=== PATIENT | female | born 1990 | race Caucasian/White ===

== ENCOUNTER 2017-06-21 23:39 | Emergency (ER) | payer MEDICAID, OTHER ==
[2017-06-22 00:07] VITALS: TEMP 97.7
[2017-06-22] MEDS ORDERED: carBAMazepine 200 MG TAB PO STA (00:32)
--- NOTE | 2017-06-22 01:39 | ED ---
Headache HPI - General Chief Complaint: Headache Stated Complaint: Headache x 2 days Time Seen by Provider: 06/22/17 00:12 Mode of arrival: ambulatory Limitations: no limitations - History of Present Illness Initial Comments: This patient is a 27-year-old woman presenting to be evaluate for left-sided headache. She states that this is been going on for about 2 days. The symptoms are intermittent. She gets very brief, very intense sharp jab of pain that resolves nearly immediately. She states this been going on multiple times a day. She tried taking ibuprofen which did not really improve things. She denies any associated fever or chills, neck pain, any neurologic symptoms. MD Complaint: headache Onset/Timin -: days(s) Onset Description: gradual Location: left, temporal Severity: severe Quality: sharp, intermittent Consistency: intermittent Improves With: nothing Worsens With: none Context: occurred at rest Treatments Prior to Arrival: Ibuprofen - Related Data Previous Rx's Medication Instructions Recorded carBAMazepine [carBAMazepine ER] 100 mg PO Q12H #20 cap 06/22/17 Allergies Allergy/AdvReac Type Severity Reaction Status Date / Time Penicillins Allergy Rash/Hives Verified 06/22/17 00:06 Review of Systems ROS Statement: Those systems with pertinent positive or pertinent negative responses have been documented in the HPI. ROS Other: All systems not noted in ROS Statement are negative. Constitutional: Denies: fever, chills Eyes: Denies: eye pain, vision change ENT: Denies: ear pain, throat pain, hearing loss Respiratory: Denies: cough, dyspnea Cardiovascular: Denies: chest pain, palpitations, syncope Gastrointestinal: Denies: abdominal pain, nausea, vomiting Musculoskeletal: Denies: back pain Skin: Denies: rash Neurological: Reports: as per HPI, headache. Denies: weakness, numbness, paresthesias, confusion, abnormal gait Past Medical History Past Medical History: No Reported History Additional Past Medical History / Comment(s): Patient approximately 2 months History of Any Multi-Drug Resistant Organisms: MRSA Date of last positivie culture/infection: 2008 MDRO Source:: abdomen Past Surgical History: No Surgical Hx Reported Past Psychological History: No Psychological Hx Reported Smoking Status: Current every day smoker Past Alcohol Use History: Occasional Past Drug Use History: None Reported General Exam Limitations: no limitations General appearance: alert, in no apparent distress Head exam: Present: atraumatic, normocephalic, normal inspection Eye exam: Present: normal appearance, PERRL, EOMI. Absent: scleral icterus, conjunctival injection, nystagmus, periorbital swelling, periorbital tenderness ENT exam: Present: normal oropharynx, mucous membranes moist, TM's normal bilaterally, normal external ear exam Neck exam: Present: normal inspection, full ROM. Absent: tenderness, meningismus, lymphadenopathy Respiratory exam: Present: normal lung sounds bilaterally. Absent: respiratory distress, wheezes, rales, rhonchi Cardiovascular Exam: Present: regular rate, normal rhythm, normal heart sounds Neurological exam: Present: alert, oriented X3, CN II-XII intact, normal gait. Absent: motor sensory deficit Skin exam: Present: warm, dry, intact, normal color. Absent: rash Course Vital Signs 06/22/17 06/22/17 00:02 01:58 Temperature 97.7 F Pulse Rate 78 74 Respiratory 20 16 Rate Blood Pressure 111/64 107/55 O2 Sat by Pulse 98 95 Oximetry Disposition Clinical Impression: Trigeminal neuralgia of left side of face Disposition: HOME SELF-CARE Condition: Good Instructions: Trigeminal Neuralgia (ED) Prescriptions: carBAMazepine [carBAMazepine ER] 100 mg PO Q12H #20 cap Referrals: Elie Tang MD [Primary Care Provider] - 1-2 days Leydi Wright MD [STAFF PHYSICIAN] - 1-2 days
[2017-06-22 01:59] VITALS: BP 107/55; PULSE 74; RESP 16
--- NOTE | 2017-06-23 03:31 | CDI ---
Documentation Clarification OP Alex Quintero MD Please do addendum to ED report for HPI , Physical exam and MDM. Thank you, Lisy Gomez Software Packaging Engineer If you have any question, Please contact coding validator at [phone] [facility]
== END 2017-06-22 02:00 | disposition home or self-care (01) ==
LOC: EC 23:39
DX: G50.0 Trigeminal neuralgia (principal); F17.200 Nicotine dependence, unspecified, uncomplicated; Z86.14 Personal history of Methicillin resistant Staphylococcus aureus infection; Z88.0 Allergy status to penicillin
CPT/HCPCS: 99283

== ENCOUNTER → 2017-07-10 | Outpatient (CLI) | payer OTHER ==
--- NOTE | 2017-07-10 16:30 | MR ---
EXAMINATION TYPE: MR brain wo con DATE OF EXAM: 07/10/2017 COMPARISON: NONE HISTORY: Left temporal headache TECHNIQUE: Multiplanar, multisequence imaging of the brain and brainstem is performed without IV cont rast. FINDINGS: Diffusion weighted images demonstrate no evidence of a recent infarct or other diffusion abnormality. There is no extraaxial fluid collection or significant white matter signal abnormality. The ventricu lar system and cisternal spaces are normal in size and appearance. The brain volume is age appropria te. Midline structures demonstrate normal morphology. The craniocervical junction appears within normal limits. Normal vascular flow voids are present. Dominant right vertebral artery is incidentally noted . The visualized sinuses are clear. The globes are slightly distorted by artifact. No suspicious flui d signal at level of mastoid air cells is present. IMPRESSION: No significant finding is seen to account for patient's symptoms.
== END | disposition home or self-care (01) ==
LOC: RADMRIMAIN 15:43
PROVIDERS: ATTEND Psychiatry & Neurology Neurology
DX: R51 Headache (principal)
CPT/HCPCS: 70551

== ENCOUNTER → 2019-12-10 | Outpatient (CLI) | payer OTHER ==
--- NOTE | 2019-12-10 11:42 | US ---
EXAMINATION TYPE: US abdomen complete DATE OF EXAM: 12/10/2019 COMPARISON: NONE CLINICAL HISTORY: 29-year-old female R10.11 RUQ ABD PAIN. Nausea, back pain TECHNIQUE: Multiple sonographic images of the abdomen are obtained. FINDINGS: EXAM MEASUREMENTS: Liver Length: 15.5 cm Gallbladder Wall: 0.1 cm CBD: 0.2 cm Spleen: 8.8 cm Right Kidney: 11.3 x 5.5 x 4.3 cm Left Kidney: 10.3 x 5.1 x 4.6 cm Pancreas: Tail is suboptimally visualized due to shadowing from bowel gas. Liver: Focal 1.1 cm echogenic area within the left hepatic lobe, refer to page 29 of 97. Possible hem angioma. Three-month follow-up ultrasound recommended to reassess. Gallbladder: wnl Evidence for sonographic Mejia's sign: No CBD: wnl Spleen: wnl Kidneys: No hydronephrosis. Upper IVC: wnl Abd Aorta: wnl IMPRESSION: 1. A 1.1 cm echogenic area within the left hepatic lobe, possible hemangioma. Three-month follow-up u ltrasound recommended to reassess. 2. No cholelithiasis or biliary ductal dilatation. 3. No hydronephrosis.
== END | disposition home or self-care (01) ==
LOC: RADUSWWP 08:30
PROVIDERS: ATTEND Family Medicine
DX: R10.11 Right upper quadrant pain (principal); Z88.0 Allergy status to penicillin
CPT/HCPCS: 76700

== ENCOUNTER 2020-01-29 19:14 | Emergency (ER) | payer OTHER ==
[2020-01-29 19:23] VITALS: TEMP 98.4
--- NOTE | 2020-01-29 20:11 | ED ---
URI HPI - General Chief Complaint: Upper Respiratory Infection Stated Complaint: Covid symptons Time Seen by Provider: 01/29/20 19:29 Source: patient Mode of arrival: ambulatory Limitations: no limitations - History of Present Illness Initial Comments: Patient is a 29-year-old female presenting to the emergency Department with complaints of a cough 4 days. 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 She denies any fever, chills, nausea, vomiting. She is also complaining of a sore throat and some mild ear pain. She states her cough is dry, no sputum production. She denies history of asthma or COPD. She denies any pertinent past medical history, takes no medications. She states she is not . She has no further complaints at this time. Upon arrival to the ER, her vitals are stable. - Related Data Previous Rx's Medication Instructions Recorded carBAMazepine [carBAMazepine ER] 100 mg PO Q12H #20 cap 06/22/17 methylPREDNISolone [Medrol Dose 4 mg PO DIRECTED #1 pack 01/29/20 Pack] Allergies Allergy/AdvReac Type Severity Reaction Status Date / Time Penicillins Allergy Rash/Hives Verified 01/29/20 19:23 Review of Systems ROS Statement: Those systems with pertinent positive or pertinent negative responses have been documented in the HPI. ROS Other: All systems not noted in ROS Statement are negative. Past Medical History Past Medical History: No Reported History Additional Past Medical History / Comment(s): Patient approximately 2 months History of Any Multi-Drug Resistant Organisms: MRSA Date of last positivie culture/infection: 2008 MDRO Source:: abdomen Past Surgical History: Section Past Psychological History: No Psychological Hx Reported Smoking Status: Current every day smoker Past Alcohol Use History: Occasional Past Drug Use History: Marijuana General Exam - General Exam Comments Initial Comments: GENERAL: Patient is well-developed and well-nourished. Patient is nontoxic and in no acute distress. HEAD: Atraumatic, normocephalic. EYES: Pupils equal round and reactive to light, extraocular movements intact, sclera anicteric, conjunctiva are normal. Eyelids were unremarkable. ENT: TMs normal, nares patent, oropharynx mild erythema, with enlargement of tonsils, no exudate. Moist mucous membranes. NECK: Normal range of motion, supple without lymphadenopathy or JVD. LUNGS: Unlabored respirations. Breath sounds clear to auscultation bilaterally and equal. No wheezes rales or rhonchi. HEART: Regular rate and rhythm without murmurs, rubs or gallops. ABDOMEN: Soft, nontender, normoactive bowel sounds. No guarding, no rebound. No masses appreciated. : Deferred MUSCULOSKELETAL: Normal extremities with adequate strength and normal range of motion, no pitting or edema. No clubbing or cyanosis. NEUROLOGICAL: Patient is alert and oriented x 3. Motor and sensory are also intact. Normal speech, normal gait. PSYCH: Normal mood, normal affect. SKIN: Warm, Dry, normal turgor, no rashes or lesions noted. Limitations: no limitations Course Vital Signs 01/29/20 01/29/20 01/29/20 19:19 20:28 20:58 Temperature 98.4 F Pulse Rate 94 87 Respiratory 20 16 16 Rate Blood Pressure 118/71 127/87 O2 Sat by Pulse 99 96 Oximetry Medical Decision Making - Medical Decision Making Patient is a 29-year-old female here for a cough 4 days as well as a sore throat. She has concerns for Covid secondary to working as a soil tester. Her vital signs stable, afebrile. Denies history of asthma. Strep test is negative, Covid test is pending. Chest x-ray reveals no acute process. I discussed with patient that this could be mild pharyngitis, or mild bronchitis. I will start patient on a steroid Dosepak. I recommended continue to quarantine until Covid test is resulted. Patient is agreeable with this plan of care. She is stable for discharge. Return parameters were discussed with the patient she verbalized understanding. - Lab Data Lab Results 01/29/20 Range/Units 20:21 Group A Strep Rapid Negative (Negative) Disposition Clinical Impression: Upper respiratory infection, viral Disposition: HOME SELF-CARE Condition: Stable Instructions (If sedation given, give patient instructions): Upper Respiratory Infection (ED) Additional Instructions: Please return to the Emergency Department if symptoms worsen or any other concerns. Take steroids as prescribed. May also take with an [id number] cough syrup, ibuprofen for sore throat. COVID test is pending. Follow-up with PCP if symptoms persist. Prescriptions: methylPREDNISolone [Medrol Dose Pack] 4 mg PO DIRECTED #1 pack Is patient prescribed a controlled substance at d/c from ED?: No Referrals: Elie Tang MD [Primary Care Provider] - 1-2 days
[2020-01-29 20:30] VITALS: RESP 16
--- NOTE | 2020-01-29 20:39 | XR ---
EXAMINATION TYPE: XR chest 2V DATE OF EXAM: 01/29/2020 COMPARISON: Chest x-ray July 31, 2012. HISTORY: Cough and sore throat. TECHNIQUE: Frontal and lateral views of the chest are obtained. FINDINGS: There is no focal air space opacity, pleural effusion, or pneumothorax seen. The cardiac silhouette size is within normal limits. The osseous structures are intact. IMPRESSION: No suspicious acute pulmonary process. No significant change from prior.
[2020-01-29 20:59] VITALS: BP 127/87; PULSE 87
== END 2020-01-29 20:58 | disposition home or self-care (01) ==
LOC: EC 19:14
DX: J06.9 Acute upper respiratory infection, unspecified (principal); F17.200 Nicotine dependence, unspecified, uncomplicated; Z88.0 Allergy status to penicillin; Z20.828 Contact with and (suspected) exposure to other viral communicable diseases
CPT/HCPCS: 87081; 87430; 71046; 99283; U0003

== ENCOUNTER → 2021-07-21 | Outpatient (CLI) | payer OTHER ==
--- NOTE | 2021-07-21 11:29 | US ---
EXAMINATION TYPE: US liver DATE OF EXAM: 07/21/2021 COMPARISON: 12/10/2019 CLINICAL HISTORY: D18.03 Liver hemangioma. Previous ultrasound left lobe abnormality. EXAM MEASUREMENTS: Liver Length: 14.9 cm Gallbladder Wall: 0.1 cm CBD: 0.3 cm Right Kidney: 10.4 x 5.2 x 3.9 cm Pancreas: Tail obscured by overlying bowel gas Liver: wnl, previous left lobe lesion not identified on todays ultrasound Gallbladder: wnl Evidence for sonographic Mejia's sign: neg CBD: wnl Right Kidney: No hydronephrosis or masses seen IMPRESSION: previous left lobe lesion not identified on today's ultrasound
== END | disposition home or self-care (01) ==
LOC: RADUSWWP 10:53
PROVIDERS: ATTEND Family Medicine
DX: D18.03 Hemangioma of intra-abdominal structures (principal)
CPT/HCPCS: 76705

== ENCOUNTER → 2024-08-15 | Outpatient (CLI) | payer OTHER ==
--- NOTE | 2024-08-15 09:18 | US ---
EXAMINATION TYPE: US bladder DATE OF EXAM: 08/15/2024 COMPARISON: NONE CLINICAL INDICATION: Female, 34 years old with history of R35.0 FREQUENCY OF MICTURITION; UTI TECHNIQUE: Grayscale and color doppler imaging of the bilateral kidneys and urinary bladder. FINDINGS: EXAM MEASUREMENTS: Post Void Residual Volume: 3.9 ml UPPER STITCHER NOTES: Color Doppler performed to assess ureteral jets. Bilateral Jets seen: Yes Normal Post Void Residual (less than 50ml): yes IMPRESSION: Unremarkable bladder evaluation. No abnormal postvoid residual noted. [facility], , 08/15/2024 9:16 AM
== END | disposition home or self-care (01) ==
LOC: RADUSWWP 08:29
PROVIDERS: ATTEND Family Medicine
DX: N23 Unspecified renal colic (principal); R35.0 Frequency of micturition; R39.15 Urgency of urination
CPT/HCPCS: 76857